=== PATIENT | male | born 1970 | race Caucasian/White ===

== ENCOUNTER 2024-06-29 06:32 | Day surgery (SDC) | payer OTHER ==
[~2024-06-29] VITALS: Ht 180.3 cm; Wt 108.9 kg
[2024-06-29] MEDS ORDERED: fentaNYL citrate 0.05 MG/ML VIAL ONE (07:40)
[2024-06-29] MEDS ORDERED: MIDAZOLAM 5 MG/5 ML VIAL ONE (07:46)
[2024-06-29] MEDS: fentaNYL citrate 0.05 MG/ML VIAL IVP ONE (08:00)
[2024-06-29] MEDS: LIDOCAINE 2% 100 MG/5 ML UJET TP ONE (08:10)
== END 2024-06-29 08:55 | disposition home or self-care (01) ==
LOC: MOR 06:32 → MMU 06:37 → MOR 08:55
PROVIDERS: ATTEND Internal Medicine Gastroenterology
DX: Z12.11 Encounter for screening for malignant neoplasm of colon (principal); K57.30 Diverticulosis of large intestine without perforation or abscess without bleeding; Z80.3 Family history of malignant neoplasm of breast
CPT/HCPCS: 45378; J3010; J2250